=== PATIENT | male | born 1985 | race Caucasian/White ===

== ENCOUNTER → 2022-02-12 | Outpatient (CLI) | payer SELFPAY ==
[~2022-02-12] VITALS: Ht 152.4 cm; Wt 64.4 kg
[2022-02-12 17:00] VITALS: BP 120/71
[2022-02-12 17:36] LABS: BASO # 0.04 K/mm3 (0.02-0.10); EOS # 0.12 K/mm3 (0.04-0.40); EOS % 1.1 % (0.0-4.0); HEMATOCRIT 44.1 % (42.0-52.0); HEMOGLOBIN 15.2 g/dL (13.5-18.0); LYMPH# 2.67 K/mm3 (1.50-4.00); MEAN CELL VOLUME 88 fl (78-100); MEAN CORPUSCULAR HEMOGLOBIN 30 pg (27-31); MEAN CORPUSCULAR HGB CONC 35 g/dL (33-37); MEAN PLATELET VOLUME 9.4 fl (7.4-10.4); MONO # 1.06 K/mm3 (0.20-0.80); NEU # 7.03 K/mm3 (1.40-6.50); PLATELET COUNT 350 K/mm3 (130-400); RED CELL DISTRIBUTION WIDTH 11.6 % (11.5-14.5); WHITE BLOOD COUNT 10.9 K/mm3 (4.8-10.8)
[2022-02-12 17:47] LABS: ALBUMIN 4.4 g/dL (3.5-5.0)
[2022-02-12 17:48] LABS: POTASSIUM 3.5 mmol/L (3.5-5.1); SODIUM 138 mmol/L (136-145)
[2022-02-12 17:49] LABS: CALCIUM 9.4 mg/dL (8.3-10.5)
[2022-02-12 17:50] LABS: GLUCOSE 103 mg/dL (75-110); TOTAL PROTEIN 7.7 g/dL (6.4-8.3)
[2022-02-12 17:51] LABS: CARBON DIOXIDE 23 mmol/L (22-29)
[2022-02-12 17:52] LABS: TOTAL BILIRUBIN 0.9 mg/dL (0.2-1.2)
[2022-02-12 17:55] LABS: AST-SGOT 22 U/L (5-34)
[2022-02-12 17:56] LABS: ALT/SGPT 30 U/L (0-55)
[2022-02-12 18:03] LABS: TROPONIN-I < 0.030 ng/mL (<0.030)
[2022-02-12 18:13] LABS: URINE APPEARANCE CLEAR; URINE BILIRUBIN NEGATIVE (NEGATIVE); URINE BLOOD NEGATIVE (NEGATIVE); URINE COLOR YELLOW; URINE GLUCOSE NEGATIVE (NEGATIVE); URINE KETONE NEGATIVE (NEGATIVE); URINE LEUKOCYTE ESTERASE NEGATIVE (NEGATIVE); URINE NITRATE NEGATIVE (NEGATIVE); URINE PROTEIN(semi-quant) TRACE (NEGATIVE); URINE UROBILINOGEN NORMAL (NORMAL); URINE WBC 0-1 /hpf (0-3)
[2022-02-12 18:14] LABS: URINE MUCUS PRESENT (NOT PRESENT)
[2022-02-12 18:31] VITALS: BP 115/73
== END ==
LOC: AMSURD 14:35 → LAB 14:35
PROVIDERS: Nurse Practitioner Family
DX: R00.0 Tachycardia, unspecified (principal); E86.0 Dehydration; R42 Dizziness and giddiness
CPT/HCPCS: J7030